=== PATIENT | female | born 1950 | race Caucasian/White ===

== ENCOUNTER 2022-12-07 09:56 | Emergency (ER) | payer OTHER ==
[~2022-12-07] VITALS: Ht 167.6 cm; Wt 63.5 kg
[2022-12-07 10:04] VITALS: BP_SYST 148
--- NOTE | 2022-12-07 10:06 | NUR ---
Patient to ER bed 8 to gown for evaluation. Side rails up. Report given to ROBERT MORROW.
--- NOTE | 2022-12-07 10:10 | NUR ---
PT BIB AWAKE AND ALERT AOX4. NO SOB OR DISTRESS. PT C/O PAIN TO LIPS AFTER A MECHANICAL FALL WHILE AT THE [facility]. PT STATED SHE TRIPPED OVER SOME PALLETS AND HIT HER LIPS ON A SHELF. PT WENT TO URGENT CARE, BUT WAS RECOMMEDENDED TO GO TO ER BY . PT STATES 04/28.
--- NOTE | 2022-12-07 10:21 | NUR ---
ER at bedside examining patient.
[2022-12-07 12:18] VITALS: BP_SYST 125
--- NOTE | 2022-12-07 13:10 | NUR ---
Patient given written and verbal discharge instructions and verbalizes understanding. ER MD DR GRAF discussed with patient the results and treatment provided. Patient in stable condition. ID arm band removed. Patient educated on pain management and to follow up with PMD. Pain Scale 2/10. Opportunity for questions provided and answered. Medication side effect fact sheet provided.
== END 2022-12-07 11:00 | disposition home or self-care (01) ==
LOC: SED 09:56
DX: S01.512A Laceration without foreign body of oral cavity, initial encounter (principal); Z79.899 Other long term (current) drug therapy; W18.30XA Fall on same level, unspecified, initial encounter; Y93.89 Activity, other specified; Y92.89 Other specified places as the place of occurrence of the external cause; Y99.8 Other external cause status
CPT/HCPCS: 99282